=== PATIENT | female | born 1955 | race Hispanic/Latino ===

== ENCOUNTER 2021-02-14 18:47 | Inpatient (IN) | payer BC, SELFPAY ==
[2021-02-14 21:58] LABS: Absolute Lymphocytes (CBC) 3.5 K/uL (0.7-4.9); Basophils % 0.4 % (0-1.3); Hematocrit 40.6 % (36.0-45.0); Lymphocytes % 35.8 % (15.3-44.8); MPV 8.8 fL (7.6-11.3); RBC Red Blood Cell Count 4.32 M/uL (3.86-4.86)
[2021-02-14 22:06] LABS: Protime INR 0.99
[2021-02-14] MEDS ORDERED: FAMOTIDINE 20 MG/2 ML VIAL IV ONE (22:18)
[2021-02-14 22:25] LABS: ALT/SGPT 35 U/L (12-78); AST/SGOT 25 U/L (15-37); Alkaline Phosphatase 127 U/L (45-117); BUN Blood Urea Nitrogen 17 mg/dL (7-18); Bicarbonate 27 mmol/L (21-32); Bilirubin Direct 0.2 mg/dL (0-0.2); Bilirubin Total 0.8 mg/dL (0.2-1.0); Glucose Level 108 mg/dL (74-106); Magnesium 2.2 mg/dL (1.8-2.4); NT PRO-BNP 95 pg/mL (<125); Potassium 3.6 mmol/L (3.5-5.1); Protein, Total 7.7 g/dL (6.4-8.2); Sodium Level 144 mmol/L (136-145); Troponin (Emerg Dept Use Only) < 0.02 ng/mL (0.0-0.045)
--- NOTE | 2021-02-14 22:56 | EDPHYS ---
Physician Documentation [facility] Name: Erica Ashley Age: 65 yrs Sex: Female : 1955 Arrival Date: 02/14/2021 Time: 18:52 Bed 25 Private MD: ED Physician Kieran Brambila HPI: 02/14 21:30 This 65 yrs old Female presents to ER via Ambulatory with complaints of Chest jmm Pain. 21:30 The patient or guardian reports chest pain that is located primarily in the substernal jmm area. Onset: gradually. 22:51 The pain radiates to Associated signs and symptoms: Pertinent negatives: shortness of m breath, syncope, vomiting. Duration: The patient or guardian reports a single episode, that is still ongoing, and unchanged. Modifying factors: The symptoms are alleviated by nothing. the symptoms are aggravated by nothing. The patient has not experienced similar symptoms in the past. This is a 65 year old female with a history of htn, hypothyroidism, hlp that presents to the ED with complaints of chest pain beginning approx 2 days ago which has been constant. has had radiation to the back and the jaw. denies sob. similar episodes in the past but usually would have subsided quickly. . Historical: - Allergies: 19:07 No Known Allergies; ll1 - PMHx: 19:07 Hypertension; Hypothyroidism; High Cholesterol; ll1 - PSHx: 19:07 Cholecystectomy; knee sx; Hysterectomy; ll1 - Immunization history:: Client reports receiving the 2nd dose of the Covid vaccine, Flu vaccine is up to date. - Social history:: Smoking status: Patient denies any tobacco usage or history of. ROS: 22:51 Constitutional: Negative for fever, chills, and weight loss. jmm 22:51 Cardiovascular: Positive for chest pain. 22:51 All other systems are negative. Exam: 22:51 Constitutional: This is a well developed, well nourished patient who is awake, alert, jmm and in no acute distress. Head/Face: atraumatic. Eyes: EOMI, no conjunctival erythema appreciated ENT: Moist Mucus Membranes Neck: Trachea midline, Supple Chest/axilla: Normal chest wall appearance and motion. Cardiovascular: Regular rate and rhythm. No edema appreciated Respiratory: Normal respirations, no respiratory distress appreciated Abdomen/GI: Non distended, soft Back: Normal ROM Skin: General appearance color normal MS/ Extremity: Moves all extremities, no obvious deformities appreciated, no edema noted to the lower extremities Neuro: Awake and alert, normal gait Psych: Behavior is normal, Mood is normal, Patient is cooperative and pleasant Vital Signs: 19:02 BP 106 / 82; Pulse 74; Resp 17; Temp 98.2; Pulse Ox 95% ; Weight 79.83 kg; Height 5 ft. ll1 2 in. (157.48 cm); Pain 6/10; 21:39 BP 130 / 78; Pulse 66; Resp 24 S; Pulse Ox 99% on R/A; Pain 6/10; bb 22:20 BP 146 / 95; Pulse 62; Resp 17; Pulse Ox 98% ; rr5 23:18 BP 136 / 89; Pulse 62; Resp 22; Pulse Ox 100% ; rr5 02/15 00:54 BP 134 / 78; Pulse 57; Resp 19; Pulse Ox 99% ; rr5 01:03 BP 139 / 65; Pulse 55; Resp 17; Temp 98.2; Pulse Ox 98% ; rr5 02/14 19:02 Body Mass Index 32.19 (79.83 kg, 157.48 cm) ll1 MDM: 02/14 21:30 Patient medically screened. [facility] 22:54 The patient was given aspirin in the Emergency Department. Data reviewed: vital signs, [facility] nurses notes, lab test result(s), EKG, radiologic studies. ED course: I discussed the patient with Dr. Worthington whom recommends to keep the patient in the hospital, will most likely perform catheterization in the morning. I discussed the patient with HAZEL Seay whom accepted the patient to Dr. Brambila's service. . 02/14 21:31 Order name: Basic Metabolic Panel [facility] 02/14 21:31 Order name: CBC with Diff [facility] 02/14 21:31 Order name: LFT's [facility] 02/14 21:31 Order name: Magnesium [facility] 02/14 21:31 Order name: NT PRO-BNP [facility] 02/14 21:31 Order name: PT-INR [facility] 02/14 21:31 Order name: Troponin (emerg Dept Use Only) [facility] 02/14 21:59 Order name: CBC with Automated Diff; Complete Time: 21:59 [facility] 02/14 22:12 Order name: Protime (+INR); Complete Time: 22:38 [facility] 02/14 22:25 Order name: Basic Metabolic Panel; Complete Time: 22:38 [facility] 02/14 22:25 Order name: Liver (Hepatic) Function; Complete Time: 22:38 [facility] 02/14 22:25 Order name: Troponin (Emerg Dept Use Only); Complete Time: 22:38 [facility] 02/14 22:25 Order name: NT PRO-BNP; Complete Time: 22:38 [facility] 02/14 22:25 Order name: Magnesium; Complete Time: 22:38 [facility] 02/14 21:31 Order name: XRAY Chest (1 view) [facility] 02/14 21:31 Order name: EKG; Complete Time: 21:32 [facility] 02/14 21:31 Order name: Cardiac monitoring; Complete Time: 21:48 [facility] 02/14 21:31 Order name: EKG - Nurse/Tech; Complete Time: 21:48 [facility] 02/14 21:31 Order name: IV Saline Lock; Complete Time: 21:48 [facility] 02/14 21:31 Order name: Labs collected and sent; Complete Time: 21:49 [facility] 02/14 21:31 Order name: O2 Per Protocol; Complete Time: 21:49 [facility] 02/14 21:31 Order name: O2 Sat Monitoring; Complete Time: 21:49 [facility] 02/14 22:55 Order name: COVID-19 : Document "Date of Symptom Onset" if Symptomatic. rr5 02/14 23:12 Order name: CORONAVIRUS [facility] 02/14 23:53 Order name: SARS-COV-2 RT PCR; Complete Time: 00:06 EDTX Administered Medications: 22:07 Not Given (Patient Refused): Pepcid (famotidine) 20 mg IVP once; dilute with 10 mL 0.9% bb NaCl; give over 2 minutes 22:57 Drug: Aspirin Chewable Tablet 324 mg Route: PO; rr5 02/15 00:54 Follow up: Response: No adverse reaction rr5 Disposition: 04:49 Co-signature as Attending Physician, Kieran Brambila MD. rn Disposition: 02/14/21 22:56 Hospitalization ordered by Jose Luis Brambila for Observation. Preliminary diagnosis is Chest pain, unspecified. - Bed requested for Telemetry/MedSurg (observation). - Status is Observation. rr5 - Condition is Stable. - Problem is new. - Symptoms are unchanged. Signatures: Dispatcher [employer] EDMS Ashok Fernandez PA PA jmm Nieto, Roman, MD MD rn Garcia, Cindy, RN RN cg Roque, Raymond, RN RN rr5 Joey Patterson RN RN ll1 Maria Teresa Paula RN bb Corrections: (The following items were deleted from the chart) 00:52 02/14 22:56 Hospitalization Ordered by Jose Luis Brambila MD for Observation. Preliminary cg diagnosis is Chest pain, unspecified. Bed requested for Telemetry/MedSurg (observation). Status is Observation. Condition is Stable. Problem is new. Symptoms are unchanged. [facility] 02/15 01:33 00:52 02/14/2021 22:56 Hospitalization Ordered by Jose Luis Brambila MD for Observation. rr5 Preliminary diagnosis is Chest pain, unspecified. Bed requested for Telemetry/MedSurg (observation). Status is Observation. Condition is Stable. Problem is new. Symptoms are unchanged. cg
--- NOTE | 2021-02-14 22:56 | ER ---
Nurse's Notes [facility] Name: Erica Fung Age: 65 yrs Sex: Female : 1955 Arrival Date: 02/14/2021 Time: 18:52 Bed 25 Private MD: Diagnosis: Chest pain, unspecified Presentation: 02/14 19:02 Chief complaint: Patient states: Lower CP that radiates into back and jaw since last ll1 night. Slight SOB, no cough. No fever. Coronavirus screen: Client denies travel out of the [place] in the last 14 days. difficulty breathing, fatigue, muscle pain, Client presents with at least one sign or symptom that may indicate coronavirus-19. Standard/surgical mask placed on the client. Ebola Screen: Patient denies travel to an Ebola-affected area in the 21 days before illness onset. Initial Sepsis Screen: Does the patient meet any 2 criteria? No. Patient's initial sepsis screen is negative. Does the patient have a suspected source of infection? No. Patient's initial sepsis screen is negative. Risk Assessment: Do you want to hurt yourself or someone else? Patient reports no desire to harm self or others. Onset of symptoms was February 13, 2021. 19:02 Method Of Arrival: Ambulatory ll1 19:02 Acuity: LINUS 3 ll1 Historical: - Allergies: 19:07 No Known Allergies; ll1 - PMHx: 19:07 Hypertension; Hypothyroidism; High Cholesterol; ll1 - PSHx: 19:07 Cholecystectomy; knee sx; Hysterectomy; ll1 - Immunization history:: Client reports receiving the 2nd dose of the Covid vaccine, Flu vaccine is up to date. - Social history:: Smoking status: Patient denies any tobacco usage or history of. Screenin:39 Abuse screen: Denies threats or abuse. Nutritional screening: No deficits noted. bb Tuberculosis screening: No symptoms or risk factors identified. Fall Risk None identified. Assessment: 21:39 General: Appears in no apparent distress. Behavior is calm, cooperative. Pain: bb Complains of pain in chest Pain radiates to back Pain currently is 6 out of 10 on a pain scale. Pain began 1 day ago. Neuro: Level of Consciousness is awake, alert, obeys commands, Oriented to person, place, time, situation. Cardiovascular: Heart tones present Capillary refill < 3 seconds Patient's skin is warm and dry. Edema is absent. Respiratory: Respiratory effort is even, unlabored, Respiratory pattern is regular, Breath sounds are clear bilaterally. GI: No signs and/or symptoms were reported involving the gastrointestinal system. Derm: Skin is pink, warm \T\ dry. Musculoskeletal: Circulation, motion, and sensation intact. 23:06 Reassessment: [id number] suresh fung family member. rr5 Vital Signs: 19:02 BP 106 / 82; Pulse 74; Resp 17; Temp 98.2; Pulse Ox 95% ; Weight 79.83 kg; Height 5 ft. ll1 2 in. (157.48 cm); Pain 6/10; 21:39 BP 130 / 78; Pulse 66; Resp 24 S; Pulse Ox 99% on R/A; Pain 6/10; bb 22:20 BP 146 / 95; Pulse 62; Resp 17; Pulse Ox 98% ; rr5 23:18 BP 136 / 89; Pulse 62; Resp 22; Pulse Ox 100% ; rr5 02/15 00:54 BP 134 / 78; Pulse 57; Resp 19; Pulse Ox 99% ; rr5 01:03 BP 139 / 65; Pulse 55; Resp 17; Temp 98.2; Pulse Ox 98% ; rr5 02/14 19:02 Body Mass Index 32.19 (79.83 kg, 157.48 cm) ll1 ED Course: 02/14 18:52 Patient arrived in ED. mr 19:05 Triage completed. ll1 19:07 Arm band placed on. ll1 21:21 [facility] 21:21 Kieran Brambila MD is Attending Physician. [facility] 21:23 Jose Luis Rendon, RN is Primary Nurse. rr5 21:39 Patient has correct armband on for positive identification. Pulse ox on. NIBP on. bb 21:39 Patient maintains SpO2 saturation greater than 95% on room air. bb 21:49 Inserted saline lock: 20 gauge in left forearm, using aseptic technique. Blood rr5 collected. 22:55 Jose Luis Brambila MD is Hospitalizing Provider. [facility] 22:57 COVID swab sent to lab. rr5 02/15 01:03 No provider procedures requiring assistance completed. Patient admitted, IV remains in rr5 place. intact, No redness/swelling at site. Administered Medications: 04/15 22:07 Not Given (Patient Refused): Pepcid (famotidine) 20 mg IVP once; dilute with 10 mL 0.9% bb NaCl; give over 2 minutes 22:57 Drug: Aspirin Chewable Tablet 324 mg Route: PO; rr5 02/15 00:54 Follow up: Response: No adverse reaction rr5 Outcome: 02/14 22:56 Decision to Hospitalize by Provider. debby 02/15 01:04 Admitted to Med/surg accompanied by tech, room 230, with chart, Report called to cody rr5 Condition: stable Instructed on the need for admit. 01:33 Patient left the ED. rr5 Signatures: Ashok Fernandez PA PA jmm Rivera, Mary mr Maria Teresa Paula, RN RN Jose Luis Marie, RN RN rr5 Joey Patterson RN RN ll1
[2021-02-14] MEDS ORDERED: ASPIRIN 81 MG CHEWABLE TABLET ONE (23:07)
--- NOTE | 2021-02-14 23:49 | P.HP ---
Certification for Inpatient Patient admitted to: Observation With expected LOS: <2 Midnights Patient will require the following post-hospital care: None Practitioner: I am a practitioner with admitting privileges, knowledge of patient current condition, hospital course, and medical plan of care. Services: Services provided to patient in accordance with Admission requirements found in Title 42 Section 412.3 of the Code of Federal Regulations <Kristian Love - Last Filed: 02/14/21 23:46> Patient History Date of Service: 02/14/21 Reason for admission: Chest pain History of Present Illness: 65-year-old female with history of hypertension, hyperlipidemia, hypothyroidism presents emergency department for chest pain. Patient reports that she has had intermittent chest pain since yesterday described as pressure- like radiating to the back in the jaw a with no associated signs or symptoms. Patient evaluated in the emergency department, labs significant for GFR 63 troponin negative, chest x-ray without acute findings, EKG without acute changes. Case was discussed with cardiology by ED provider, patient with recent stress test with borderline findings, wishes to have her admitted for heart catheterization. Will admit for further evaluation and management - Past Medical/Surgical History Diabetic: No -: Hypertension -: Hyperlipidemia -: Hypothyroidism -: Cholecystectomy Psychosocial/ Personal History: Patient is unemployed, lives with her family - Family History Mother -: Heart disease Father -: Cancer Sister -: Heart disease - Social History Smoking Status: Never smoker Alcohol use: No CD- Drugs: No Caffeine use: Yes Place of Residence: Home <IvanKristian - Last Filed: 02/14/21 23:46> Date of Service: 02/15/21 <Jose Luis Brambila - Last Filed: 02/15/21 21:39> Allergies No Known Allergies Allergy (Unverified 02/15/21 01:57) Review of Systems 10-point ROS is otherwise unremarkable Cardiovascular: Chest Pain, As per HPI <Kristian Love - Last Filed: 02/14/21 23:46> Physical Examination - Physical Exam General: Alert, In no apparent distress HEENT: Atraumatic, PERRLA, Mucous membr. moist/pink Neck: Supple, 2+ carotid pulse no bruit, No LAD Respiratory: Clear to auscultation bilaterally, Normal air movement Cardiovascular: Regular rate/rhythm, Normal S1 S2 Gastrointestinal: Normal bowel sounds, No tenderness Musculoskeletal: No tenderness Integumentary: No rashes Neurological: Normal speech, Normal strength at 5/5 x4 extr, Normal tone, Normal affect - Studies Laboratory Data (last 24 hrs) 02/14/21 21:45: PT 11.4, INR 0.99 02/14/21 21:45: WBC 9.60, Hgb 13.8, Hct 40.6, Plt Count 237 02/14/21 21:45: Sodium 144, Potassium 3.6, BUN 17, Creatinine 0.90, Glucose 108 H, Magnesium 2.2, Total Bilirubin 0.8, AST 25, ALT 35, Alkaline Phosphatase 127 H <Kristian Love - Last Filed: 02/14/21 23:46> - Studies Laboratory Data (last 24 hrs) 02/15/21 06:06: Sodium 144, Potassium 3.1 L, BUN 17, Creatinine 0.70, Glucose 111 H, Magnesium 2.3, Total Bilirubin 1.1 H, AST 20, ALT 34, Alkaline Phosphatase 108, Troponin I < 0.02, Triglycerides 78, Cholesterol 143, HDL Cholesterol 56, Cholesterol/HDL Ratio 2.55 02/15/21 06:06: WBC 7.00 D, Hgb 13.3, Hct 40.2, Plt Count 236 02/14/21 21:45: PT 11.4, INR 0.99 02/14/21 21:45: WBC 9.60, Hgb 13.8, Hct 40.6, Plt Count 237 02/14/21 21:45: Sodium 144, Potassium 3.6, BUN 17, Creatinine 0.90, Glucose 108 H, Magnesium 2.2, Total Bilirubin 0.8, AST 25, ALT 35, Alkaline Phosphatase 127 H <Jose Luis Brambila - Last Filed: 02/15/21 21:39> Assessment and Plan - Plan Assessment Chest pain rule out ACS Hypertension, hyperlipidemia, hypothyroidism Plan Chest pain rule out ACS: Monitor on telemetry, NPO after midnight. Case was discussed with cardiology by ED provider, plan for heart catheterization tomorrow. Trend troponins, continue with aspirin, statin, beta-alysha therapy. Continue other home medications. Hypertension, hyperlipidemia, hypothyroidism: Thyroid/lipid panel with morning labs. Obtain and continue other home medications. Adjust as necessary. Discharge Plan: Home Plan to discharge in: 24 Hours - Advance Directives Does patient have a Living Will: No Does patient have a Durable POA for Healthcare: No - Code Status/Comfort Care Code Status Assessed: Yes (Full code) Critical Care: No Time Spent Managing Pts Care (In Minutes): 55 <Kristian Love - Last Filed: 02/14/21 23:46> - Plan plan reviewed as noted above chest pain, recent questionable stress test planned for cardiac cath by cardiology <Jose Luis Brambila - Last Filed: 02/15/21 21:39>
[2021-02-15] MEDS ORDERED: ACETAMINOPHEN 500 MG TAB PO PRN (01:11)
[2021-02-15] MEDS ORDERED: ONDANSETRON 4 MG/2 ML VIAL IV PRN (01:11)
[2021-02-15] MEDS ORDERED: MORPHINE 2 MG/ML SYR IV PRN (01:11)
[2021-02-15 01:35] VITALS: BMI 31.5
[2021-02-15] MEDS ORDERED: MELATONIN 5 MG TABLET PO ONE (04:20)
[2021-02-15] MEDS ORDERED: METOPROLOL TAR 25 MG TAB PO SCH (06:00)
[2021-02-15 06:29] LABS: Absolute Lymphocytes (CBC) 2.3 K/uL (0.7-4.9); Basophils % 0.5 % (0-1.3); Hematocrit 40.2 % (36.0-45.0); Lymphocytes % 32.2 % (15.3-44.8); MPV 8.8 fL (7.6-11.3); RBC Red Blood Cell Count 4.28 M/uL (3.86-4.86)
[2021-02-15 06:37] LABS: ALT/SGPT 34 U/L (12-78); AST/SGOT 20 U/L (15-37); Albumin 3.5 g/dL (3.4-5.0); Alkaline Phosphatase 108 U/L (45-117); BUN Blood Urea Nitrogen 17 mg/dL (7-18); Bicarbonate 28 mmol/L (21-32); Bilirubin Total 1.1 mg/dL (0.2-1.0); Glucose Level 111 mg/dL (74-106); HDL Cholesterol 56 mg/dL (40-60); LDL Cholesterol, Calculated 71 (<130); Magnesium 2.3 mg/dL (1.8-2.4); Potassium 3.1 mmol/L (3.5-5.1); Protein, Total 6.8 g/dL (6.4-8.2); Sodium Level 144 mmol/L (136-145); Troponin I < 0.02 ng/mL (0.0-0.045)
[2021-02-15] MEDS ORDERED: NA CHLORIDE 0.9% 1,000 ML IV SCH (07:00)
[2021-02-15] MEDS: KCL 20 MEQ/100 mL IVPB 20 MEQ/100 ML BAG IV SCH ×2 (07:56→09:00)
--- NOTE | 2021-02-15 08:22 | RAD REPORT ---
EXAM DESCRIPTION: RAD - Chest Single View - 02/14/2021 10:49 pm CLINICAL HISTORY: CHEST PAIN Chest pain. COMPARISON: No comparisons FINDINGS: Portable technique limits examination quality. The lungs are grossly clear. The heart is normal in size. No displaced fractures. IMPRESSION: No acute intrathoracic process suspected.
[2021-02-15] MEDS ORDERED: ASPIRIN EC 81 MG TAB PO SCH (09:00)
[2021-02-15] MEDS ORDERED: LIDOCAINE 1% 20 ML MDV ONE (10:08)
[2021-02-15] MEDS ORDERED: HEPA 1000U/500MLS 2,000 UNIT/1,000 ML BAG IV ONE (10:08)
[2021-02-15] MEDS ORDERED: HEPARIN 5000 UNIT/ML 1 ML VIAL ONE ×2 (10:56→10:58)
[2021-02-15] MEDS ORDERED: MIDAZOLAM HCL 2 MG/2 ML INJ ONE (10:56)
[2021-02-15] MEDS ORDERED: VERAPAMIL HCL 10 MG/4 ML VIAL IV ONE (10:57)
[2021-02-15] MEDS ORDERED: NITROGLYCERIN 100 MCG/ML SYR (for cath lab use only) IV ONE (10:57)
[2021-02-15] MEDS ORDERED: FENTANYL CITR 100 MCG/2 ML ONE (10:57)
[2021-02-15] MEDS ORDERED: ATROPINE SULF 1 MG/10 ML SYR IV ONE (10:58)
[2021-02-15 12:46] VITALS: O2SAT 94
[2021-02-15 17:36] VITALS: BP 108/62; TEMP 98.4
[2021-02-15] MEDS ORDERED: ATORVASTATIN 40 MG TAB PO SCH (21:00)
--- NOTE | 2021-02-15 21:41 | OP ---
Date of Procedure: 02/15/2021 Surgeon: ANDREZ ROUSE Procedure Performed: Selective coronary angiogram. Indication: Unstable angina. Access: Right radial artery 6-Danish closed with TR band. Complications: None. Bleeding: Less than 10 mL. Description Of Procedure: After risks, benefits, and alternatives were explained, the patient agreed to the procedure and signed informed consent. Then, we accessed the right radial artery using pedia tric micropuncture kit, placed 6-Danish slender sheath, and then took 5-Danish [place] 4.0 catheter int o the aortic root over J-wire, engaged left main and right coronary artery, took standard views and t hen removed the catheter and the sheath, and placed TR band with good hemostasis. Findings: 1.Left main is normal. 2.LAD normal. 3.Left circumflex is normal. 4.RCA large, dominant, and normal. Conclusion: Normal coronary arteries. Plan: From a cardiac standpoint, can be discharged home and follow up as an outpatient. SR/MODL Voice ID: [id number] Report ID: [id number]
--- NOTE | 2021-02-15 21:44 | P.DS ---
Admission Date: 02/14/21 Discharge Date: 02/15/21 Disposition: ROUTINE DISCHARGE Discharge Condition: GOOD Reason for Admission: Chest pain Consultations: Cardiology - Dr. Worthington Procedures: CXR (02/14): no acute intrathoracic process suspected Cardiac Cath (02/15): final report unavailable at time of discharge, however reported no significant stenosis, no intervention performed Problem List Chest pain Hypertension Hyperlipidemia Hypothyroidism Brief History of Present Illness: 65-year-old female with history of hypertension, hyperlipidemia, hypothyroidism presents emergency department for chest pain. Patient reports that she has had intermittent chest pain since yesterday described as pressure- like radiating to the back in the jaw a with no associated signs or symptoms. Patient evaluated in the emergency department, labs significant for GFR 63 troponin negative, chest x-ray without acute findings, EKG without acute ch anges. Case was discussed with cardiology by ED provider, patient with recent stress test with borderline findings, wishes to have her admitted for heart catheterization. Hospital Course: Underwent cardiac catheterization - no significant findings/lesions and did not require stenting or any other intervention. Cardiology recommended no further cardiac workup/evaluation at this time, ACS ruled out, and patient cleared for discharge. Follow up with PCP. She was noted to be slightly hypokalemic, stated she takes KCL in past but has been out. A prescription was given for KCL. No other changes in medications. Vital Signs/Physical Exam: Physical Exam General: Alert, In no apparent distress HEENT: Atraumatic, PERRLA, Mucous membr. moist/pink Respiratory: Clear to auscultation bilaterally, Normal air movement Cardiovascular: Regular rate/rhythm, Normal S1 S2 Gastrointestinal: Normal bowel sounds, No tenderness Musculoskeletal: No tenderness Integumentary: No rashes Neurological: Normal speech, Normal strength at 5/5 x4 extr, Normal affect Temp Pulse Resp BP Pulse Ox 98.4 F 72 16 108/62 95 02/15/21 16:00 02/15/21 16:00 02/15/21 16:00 02/15/21 16:00 02/15/21 16:00 Laboratory Data at Discharge: WBC 7.00 K/uL (4.3-10.9) D 02/15/21 06:06 Hgb 13.3 g/dL (12.0-15.0) 02/15/21 06:06 Hct 40.2 % (36.0-45.0) 02/15/21 06:06 Plt Count 236 K/uL (152-406) 02/15/21 06:06 PT 11.4 SECONDS (9.5-12.5) 02/14/21 21:45 INR 0.99 02/14/21 21:45 Sodium 144 mmol/L (136-145) 02/15/21 06:06 Potassium 3.1 mmol/L (3.5-5.1) L 02/15/21 06:06 BUN 17 mg/dL (7-18) 02/15/21 06:06 Creatinine 0.70 mg/dL (0.55-1.3) 02/15/21 06:06 Glucose 111 mg/dL (74-106) H 02/15/21 06:06 Magnesium 2.3 mg/dL (1.8-2.4) 02/15/21 06:06 Total Bilirubin 1.1 mg/dL (0.2-1.0) H 02/15/21 06:06 AST 20 U/L (15-37) 02/15/21 06:06 ALT 34 U/L (12-78) 02/15/21 06:06 Alkaline Phosphatase 108 U/L (45-117) 02/15/21 06:06 Troponin I Cancelled 02/15/21 12:00 Triglycerides 78 mg/dL (<150) 02/15/21 06:06 Cholesterol 143 mg/dL (<200) 02/15/21 06:06 HDL Cholesterol 56 mg/dL (40-60) 02/15/21 06:06 Cholesterol/HDL Ratio 2.55 02/15/21 06:06 Home Medications: RX: Levothyroxine [Synthroid*] 1 tab PO DAILY 02/15/21 RX: Losartan Potassium 1 tab PO BID 02/15/21 RX: Lovastatin 1 tab PO BEDTIME 02/15/21 RX: Omeprazole 1 tab PO DAILY 02/15/21 RX: Potassium Chloride [Klor-Con 10] 10 meq PO DAILY 30 Days #30 tablet.er 02/15/21 RX: hydroCHLOROthiazide [Hydrochlorothiazide] 1 tab PO DAILY 02/15/21 New Medications: RX: Potassium Chloride [Klor-Con 10] 10 meq PO DAILY 30 Days #30 tablet.er Physician Discharge Instructions: PROBLEM: Chest pain GOAL: Clear understanding of disease process INSTRUCTIONS: Your chest pain was evaluated by cardiac enzymes, EKG, and cardiac catheterization. These were all normal and you did not require any stenting or other procedures. Your potassium was noted to be low and you are discharged with a prescription for potassium. Please follow up with your PCP in ~1 week. Diet: Heart Healthy Activity: As tolerated, No strenuous activity E-script sent to IMMUNIZATION Influenza Vaccine Indicated: Influenza Vaccine Given: Date Given: Pneumonia Vaccine Indicated: No Pneumonia Vaccine Given: Date Given: Follow up with a Retail Visual Merchandiser of your choice: CHUY LEMUS, [address] [address] PADMA LEMUS, [address] [address] Diet: AHA Activity: Ad rony Followup: NONE,NONE [Primary Care Provider] - Time spent managing pt's care (in minutes): 35
--- NOTE | 2021-02-17 14:32 | CON ---
Date of Consultation: 02/15/2021 Reason For Consultation: Chest pain. History Of Present Illness: This is a middle-aged female, who comes in with frequent chest pain on m inimal activities that is becoming more frequent lately and limiting her activities along with shortn ess of breath. No nausea or diaphoresis. No fever or cough and no other complaints. Past Medical History: As outlined above. Medications: Refer to reconciliation sheet for detailed list. Allergies: REVIEWED. Family History: No premature coronary artery disease or cancer. Social History: She is a smoker. Does not drink or use any drugs. Review of Systems: All systems reviewed and they were negative except what is mentioned in HPI. Physical Examination: Vital Signs: Reviewed. Head and Neck: Pupils are equal, reactive to light. Intact eye movements. No JVD. No cervical lym phadenopathy. Neck: Supple. Thyroid is not enlarged. Lungs: Clear to auscultation bilaterally. No rhonchi, rales, or crackles. No accessory muscle use. Heart: Regular rate and rhythm. No extra sounds. Abdomen: Soft, nontender. Bowel sounds positive. No organomegaly. No masses or hernia. No rigidi ty or rebound. Extremities: No clubbing or cyanosis. Intact pulses. Skin: No rash noted. Neurologic: Alert, awake, oriented x3. No acute focal deficits appreciated. Lymph Nodes: No cervical or axillary lymphadenopathy. Investigations: Labs were reviewed Assessment And Recommendations: Unstable angina with more frequent and recurrent chest pain. Recomm end coronary angiogram, which will be done this morning. The patient is n.p.o. Continue aspirin and further plan according to the angiography results. /SHY Voice ID: [id number] Report ID: [id number]
== END 2021-02-15 15:54 | disposition home or self-care (01) | DRG 287 ==
LOC: ER 18:47 → ERHOLD 23:30 → 2ND 02-15 01:04 → OBSVTOIN 02-15 08:01
PROVIDERS: ADMIT Hospitalist; ATTEND Hospitalist
PROC: 4A023N7 Measurement of Cardiac Sampling and Pressure, Left Heart, Percutaneous Approach (ICD-10-PCS; principal; 2021-02-15)
PROC: B2111ZZ Fluoroscopy of Multiple Coronary Arteries using Low Osmolar Contrast (ICD-10-PCS; 2021-02-15)
DX: R07.9 Chest pain, unspecified (principal); I20.0 Unstable angina; I10 Essential (primary) hypertension; E03.9 Hypothyroidism, unspecified; E87.6 Hypokalemia; F17.200 Nicotine dependence, unspecified, uncomplicated; E78.5 Hyperlipidemia, unspecified; Z90.49 Acquired absence of other specified parts of digestive tract; Z90.710 Acquired absence of both cervix and uterus; Z56.0 Unemployment, unspecified; Z79.890 Hormone replacement therapy; Z79.899 Other long term (current) drug therapy; Z20.822 Contact with and (suspected) exposure to COVID-19
CPT/HCPCS: 36415; 71045; 80048; 80053; 80061; 80076; 83735; 83880; 84439; 84443; 84484; 85025; 85610; 93005; 93454; 99285; C1893; G0378; J1644; J2250; J3010; J3480; J7030; U0003